=== PATIENT | female | born 1995 | race Caucasian/White ===

== ENCOUNTER 2024-03-12 18:34 | Emergency (ER) | payer SELFPAY ==
[~2024-03-12] VITALS: Ht 162.6 cm; Wt 91.0 kg
[2024-03-12 18:46] VITALS: BP 118/83; PULSE 130; RESP 18; TEMP 98.1; O2SAT 100; O2SAT 99
[2024-03-12] MEDS ORDERED: CETI10CA2 MT (23:01)
[2024-03-12] MEDS ORDERED: PRED10TA MT (23:01)
== END 2024-03-12 23:28 | disposition home or self-care (01) ==
LOC: ER 18:34
DX: B09 Unspecified viral infection characterized by skin and mucous membrane lesions (principal); I49.9 Cardiac arrhythmia, unspecified
CPT/HCPCS: 93005; 99283